=== PATIENT | female | born 1965 | race Caucasian/White ===

== ENCOUNTER 2023-08-06 13:50 | Emergency (ER) | payer BC ==
[~2023-08-06] VITALS: Ht 157.5 cm; Wt 68.0 kg
[2023-08-06 13:55] VITALS: BP_SYST 117; PULSE 87; RESP 19; TEMP 97; O2SAT 98
[2023-08-06 14:26] LABS: BASOPHILS % (AUTO) 0.5 % (0.0-2.0); EOSINOPHILS # (AUTO) 0.1 K/uL (0.0-0.4); EOSINOPHILS % (AUTO) 0.8 % (0.0-4.0); HEMATOCRIT 39.7 % (36-48); HEMOGLOBIN 13.6 g/dL (12.0-16.0); LYMPHOCYTES % (AUTO) 15.6 % (20.5-51.5); MEAN CORPUSCULAR HEMOGLOBIN 30 pg (27-31); MEAN CORPUSCULAR HGB CONC 34 % (32-36); MEAN CORPUSCULAR VOLUME 88 fL (79.0-98.0); MONOCYTES # (AUTO) 0.3 K/uL (0.0-1.0); MONOCYTES % (AUTO) 5.1 % (1.7-9.3); NEUTROPHILS # (AUTO) 5.2 K/uL (1.8-7.7); PLATELET COUNT (AUTO) 236 K/uL (130-430); RED BLOOD CELL COUNT(AUTO) 4.51 MIL/uL (4.2-6.2); RED CELL DISTRIBUTION WIDTH 13.3 % (9.0-15.0); WHITE BLOOD COUNT (AUTO) 6.6 K/uL (4.8-10.8)
[2023-08-06 14:47] LABS: ALBUMIN 3.7 g/dL (3.4-4.8); BILIRUBIN,DIRECT 0.1 mg/dL (0.0-0.3); CALCIUM 9.2 mg/dL (8.4-11.0); CREATININE 0.7 mg/dL (0.55-1.30); POTASSIUM 3.1 mmol/L (3.5-5.1); TOTAL BILIRUBIN 0.7 mg/dL (0.0-1.0); TOTAL PROTEIN, SERUM 7.1 g/dL (6.4-8.3)
[2023-08-06] MEDS: LORazepam 1 MG TABLET PO ONE (14:49)
[2023-08-06] MEDS: POTASSIUM CHLORIDE 20 MEQ/PKT PACKET PO ONE (15:11)
[2023-08-06] MEDS: MAGNESIUM OXIDE 400 MG TABLET PO ONE (16:02)
[2023-08-06 16:09] VITALS: BP_SYST 115; PULSE 78; RESP 16; TEMP 97.6; O2SAT 96
== END 2023-08-06 16:09 | disposition home or self-care (01) ==
LOC: SED 13:50
DX: F41.9 Anxiety disorder, unspecified (principal); E87.6 Hypokalemia; R42 Dizziness and giddiness; Z88.5 Allergy status to narcotic agent
CPT/HCPCS: 36415; 80048; 80076; 85025; 93005; 99284